=== PATIENT | male | born 1965 | race Caucasian/White ===

== ENCOUNTER 2017-02-26 09:24 | Outpatient (CLI) | payer OTHER ==
--- NOTE | 2017-03-01 10:05 | Diagnostic Imaging Report ---
Indication: ABD PAIN; hepatitis C. Technique: Murray-scale and duplex images of the upper abdomen were obtained Comparison: 03/01/2015 Findings: Imaged portions of the pancreatic head are unremarkable in appearance. The body and tail are not well seen. The liver is normal in size with homogeneous echotexture. The liver contour is smooth. No discrete hepatic mass lesion is appreciated sonographically. Mobile, shadowing gallstones are noted within the gallbladder. There is no evidence of abnormal gallbladder distention, gallbladder wall thickening or pericholecystic fluid to suggest acute cholecystitis. Sonographic Scott's sign was reported as negative. The common bile duct measures up to 4.5 mm in diameter. There is no intrahepatic biliary ductal dilatation. The kidneys demonstrate normal echogenicity and parenchymal thickness bilaterally. There is a simple renal cyst in the lower pole of the left that measures up to 2.9 cm in diameter. There is no hydronephrosis bilaterally. The spleen is normal in size. There is no ascites. Imaged portions of the abdominal aorta and IVC are normal in caliber. Impression: Cholelithiasis. No evidence to suggest acute cholecystitis. No focal liver mass appreciated sonographically. Liver contour is smooth.
== END 2017-02-26 11:24 | disposition home or self-care (01) ==
LOC: ULS 09:24
DX: B19.20 Unspecified viral hepatitis C without hepatic coma (principal)
CPT/HCPCS: 76700

== ENCOUNTER → 2018-02-25 | Outpatient (CLI) | payer OTHER ==
--- NOTE | 2018-02-25 12:11 | Diagnostic Imaging Report ---
Indication: Abdominal pain, history of hepatitis Technique: Murray-scale and duplex images of the upper abdomen were obtained Doppler interrogation of the pancreatic and hepatic vessels Comparison: 02/26/2017 Findings: Gallbladder demonstrates gallstones. No wall thickening nor pericholecystic fluid. Sonographic Scott's sign is negative. Common bile duct measures 4 mm in diameter. No intrahepatic biliary ductal dilatation. Liver demonstrates normal echogenicity, no focal abnormality. No surface nodularity. Portal vein and hepatic veins are patent. Pancreas is unremarkable. Spleen is unremarkable. Left kidney measures 10.6 cm in length. Right kidney measures 12.2 cm length. Both kidneys demonstrate normal echogenicity. There is no hydronephrosis. One or more echogenic foci seen in the right renal sinus with some shadowing. Left kidney demonstrates a lower pole cyst. Non-aneurysmal abdominal aorta . No ascites Impression: Cholelithiasis. Negative for dilated ducts No focal liver mass or hepatic surface nodularity Echogenic foci in the right renal sinus, artifact versus small calculi Incidental finding left renal cyst
== END | disposition home or self-care (01) ==
LOC: ULS 09:28
DX: R10.9 Unspecified abdominal pain (principal); K80.20 Calculus of gallbladder without cholecystitis without obstruction; N20.0 Calculus of kidney
CPT/HCPCS: 76700

== ENCOUNTER 2019-03-03 08:51 | Outpatient (CLI) | payer OTHER ==
--- NOTE | 2019-03-03 15:38 | Diagnostic Imaging Report ---
Indication: Abdominal pain, history of hepatitis C Technique: Murray-scale and duplex images of the upper abdomen were obtained Comparison: 02/25/2018 Findings: Gallbladder demonstrates gallstones. No gallbladder wall thickening nor pericholecystic fluid. Sonographic Scott's sign is negative. Common bile duct measures 4 mm in diameter. No intrahepatic biliary ductal dilatation. Liver demonstrates normal echogenicity, no focal abnormality. No surface nodularity. Portal vein and hepatic veins are patent. Pancreas is incompletely visualized due to overlying bowel gas, visualized portions are unremarkable. Spleen is unremarkable. Left kidney measures 12.1 cm in length. Right kidney measures 13 point cm length. Both kidneys demonstrate normal echogenicity. There is no hydronephrosis. There is a cyst in the left renal interpolar region again demonstrated . Non-aneurysmal abdominal aorta . Impression: Cholelithiasis, also previously reported Negative for dilated bile ducts Unremarkable liver Incidental finding left renal cyst Note inability to visualize portions of the pancreas
== END 2019-03-03 10:51 | disposition home or self-care (01) ==
LOC: ULS 08:51
DX: R10.9 Unspecified abdominal pain (principal); Z86.19 Personal history of other infectious and parasitic diseases; K80.20 Calculus of gallbladder without cholecystitis without obstruction; N28.1 Cyst of kidney, acquired
CPT/HCPCS: 76700